=== PATIENT | female | born 2005 | race Caucasian/White ===

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

== ENCOUNTER 2023-02-23 02:47 | Emergency (ER) | payer OTHER, SELFPAY ==
[2023-02-23 02:58] VITALS: BP 110/55; PULSE 70; RESP 16; TEMP 36.5; O2SAT 97; BMI 21.4
--- NOTE | 2023-02-23 03:39 | ED.GENADULT ---
HPI - General Adult General Chief complaint: Upper Respiratory Symptoms Stated complaint: chest pain, cough, Time Seen by Provider: 02/23/23 02:54 Source: patient Mode of arrival: Ambulatory History of Present Illness HPI narrative: 17-year-old woman with a history of epilepsy, anxiety depression, regular marijuana use, chronic reflux, postnasal drip post tonsillectomy presents complaining about blood flecked sputum production 1st thing in the morning. She notes that she does have postnasal drip during the night. She does not have a chronic cough during the day. She does smoke marijuana regularly throughout the day and had been using oils as well. She has multiple questions about COPD and chronic bronchitis. Multiple questions about anxiety, appetite stimulation with THC appetite suppression with Vimpat and is concerned that she is having mucus production 1st thing in the morning with blood flecks. Since starting her recent Vimpat for her seizure disorder she has significant decrease in appetite in his lost about 8 lb. She has been Birgit using marijuana to counter that. She was prescribed an SSRI for depression but has been anxious about starting that. Patient does note that she has been coughing more over the last 3-4 days and has increasing fullness sensation in her throat. With increased postnasal drip and increased reflux Related Data Previous Rx's Medication Instructions Recorded levetiracetam 500 mg tablet 500 mg PO Q12H #60 tabs 11/07/21 (Keppra) levetiracetam 500 mg 1,000 mg PO DAILY #30 tabs 11/07/21 tablet,extended release 24 hr (Roweepra XR) Allergies Allergy/AdvReac Type Severity Reaction Status Date / Time lamotrigine Allergy Verified 02/23/23 03:06 Review of Systems Review of Systems Narrative: Pertinent positive and negative findings as per HPI Patient History Medical History Anxiety Seizure disorder Social History household members: family Smoking Status: Former smoker Smoking Status: Former smoker tobacco type: vaping alcohol intake frequency: a few times a month Substance Use Type: marijuana Exam Initial Vital Signs Initial Vital Signs: Vital Signs Temperature 97.7 F 02/23/23 02:58 Pulse Rate 70 02/23/23 02:58 Respiratory Rate 16 02/23/23 02:58 Blood Pressure 110/55 L 02/23/23 02:58 Pulse Oximetry 97 02/23/23 02:58 Oxygen Delivery Method Room Air 02/23/23 02:58 General: Healthy appearing, in no acute distress. Able to give a complete and coherent history. Well-nourished well-developed HEENT: Moist mucous membranes, normal sclera with reactive pupils, minor posterior pharyngeal erythema without exudate. No cervical adenopathy Respiratory: Lungs are clear to auscultation, no wheezing no rales no rhonchi. Full and symmetrical air movement Cardiac: Regular rate and rhythm no murmurs no bruits Abdomen: Soft, nontender, good bowel tones, no flank pain Skin: Warm and dry, no rashes Neurologic: Grossly neurologically intact with no obvious asymmetries or abnormalities Extremities: No trauma, well perfused Psych: Cooperative, appropriate insight and affect, good eye contact, nonpressured speech Course Orders Ordered: ED Orders 02/23/23 04:13 XR chest 2V Stat Vital Signs Vital signs: Vital Signs - 8 hr 02/23/23 02:58 Temperature 97.7 F Pulse Rate 70 Respiratory Rate 16 Blood Pressure 110/55 L Pulse Oximetry 97 Oxygen Delivery Method Room Air Medical Decision Making [facility] Narrative Medical decision making narrative: CC: Hemoptysis, acute issue uncertain prognosis Complicating co-morbidities: Regular marijuana use, anxiety, depression, seizure disorder, medication side effects with appetite suppression Data collected from: patient, mother Social determinants of health that may influence the patients condition: Anxiety, depression, access to healthcare. She currently lives in [place] and has been on a waiting list for primary care physician for over a year. Has been unable to connect with a counselor Differential considered: Upper respiratory infection, sinusitis, postnasal drip, irritation from nighttime reflux, viral syndrome. Cancers are certainly within the differential but given her age and symptoms only for 3 days far less likely Exam documented above, pertinent findings include: Fairly benign exam Imaging studies independently reviewed: Unremarkable chest x-ray Discussion: 17-year-old woman with concerns about sputum that seems to be worse in the morning and over the last 3 days has had some blood flecks associated with it she has multiple reasons for morning sputum including postnasal drip, chronic reflux, chronic marijuana use and I suspect there is a low-grade viral component to this over the last 3 days as well. Chest x-ray is reassuring. There is no indication is significant pathology. Reassurance is given. We spent an extended amount of time talking about her marijuana use, anxiety, depression, anxiety over her seizure disorder and options. I did suggest that she consider changing her marijuana use. I suggested that a six-month washout with no marijuana use make it her to her psychiatric baseline so that she is able to work with a counselor regarding her anxiety and depression more effectively. We talked about not using oils that are smoked, in terms of risk reduction using hybrid blends rather than CT but to avoid anxiety. Adding CBD to help mitigate some of the anxiety effects and perhaps even augment some of the antiseizure medications. Trying edibles rather than smoking. Again, reiterated that no use is going to be the best option for her at this time. 35 minutes were spent in discussion, counseling and answering questions. At this time she is safe for discharge home Discharge Plan Departure Patient Disposition: Home Clinical Impression: Cough with hemoptysis, Seizure disorder, Anxiety with depression, Post-nasal drip, Chronic GERD Instructions: DI for Hemoptysis Activity Restrictions/Additional Instructions: Thank you for coming in today Your chest x-ray was reassuring. I am not seeing anything life-threatening, no tumors, masses, COPD or chronic bronchitis. You do have multiple reasons to have a slight amount of blood with the 1st minute mucous that you cough up in the morning. Postnasal drip can contribute as can chronic reflux and continued use of regular smoked marijuana can certainly influence this as well. I am wondering since symptoms have gotten worse in the last few days if you also have a mild viral syndrome. At this time, there is nothing that you need to do and I suspect this is going to improve. Regarding your marijuana use, I think from a psychiatric standpoint you may achieve the best benefit from stopping use completely for 6 months. If you do want to continue some use, think about harm reduction. This means considering edibles over oils. Using a hybrid or indica blend with higher levels of CBD rather than concentrated THC that can increase overall anxiety. Please reconsider talking to your insurance company about online therapy options. Understanding why you are using so much marijuana may be quite helpful in decreasing use and findings more effective treatments to help treat whatever you are covering up with a marijuana use. None of these choices are easy and the prospect of actually confronting some of your stressors and anxiety to truly get to healthy can be somewhat intimidating. I have absolute juan luis that you can do this. I wish you the very best Prescriptions: No Action levetiracetam [Roweepra XR] 500 mg tablet extended release 24 hr 1,000 mg PO DAILY Qty: 30 0RF levetiracetam [Keppra] 500 mg tablet 500 mg PO Q12H Qty: 60 0RF Rx Instructions: 500mg in am, 750 mg PM Referrals: Theodore Richmond DO [Primary Care Provider] - Stand Alone Forms: Patient Portal/API
--- NOTE | 2023-02-23 04:13 | DI.RAD.S_ITS ---
PROCEDURE: XR CHEST 2V INDICATIONS: hemoptosis TECHNIQUE: 2 views of the chest were acquired. COMPARISON: None. FINDINGS: Surgical changes and devices: None. Lungs and pleura: Lungs are clear. No pleural effusions or pneumothorax. Mediastinum: Mediastinal contours are normal. Heart size is normal. Bones and chest wall: No suspicious bony abnormalities. Soft tissues appear unremarkable. IMPRESSION: No acute radiographic abnormality. Agree with prelim report. Dictated by: Jason Gilliland M.D. on 02/23/2023 at 8:07 Approved by: Jason Gilliland M.D. on 02/23/2023 at 8:07
[2023-02-23 04:51] VITALS: BP 99/56; PULSE 61; RESP 16; O2SAT 99
== END 2023-02-23 04:55 | disposition home or self-care (01) ==
PROVIDERS: Emergency Provider Emergency Medicine; PCP Family Medicine
DX: R05.9 Cough, unspecified (principal); R04.2 Hemoptysis; F41.8 Other specified anxiety disorders; R09.82 Postnasal drip; K21.9 Gastro-esophageal reflux disease without esophagitis; G40.909 Epilepsy, unspecified, not intractable, without status epilepticus
CPT/HCPCS: 71046; 99281; 99283